=== PATIENT | female | born 1970 | race Caucasian/White ===

== ENCOUNTER 2016-11-08 23:01 | Emergency (ER) | payer MEDICAID ==
[~2016-11-08] VITALS: Ht 165.1 cm; Wt 97.5 kg
[~2016-11-08 23:01] MED LIST: ATEN-166 PO; DOXY-4 PO; FURO-149 PO; FURO40TA5 PO; GABA-531; IBUP-1479 PO; INSU100V9 SUBCUT; INSU200I SQ; LOSA100T15; OMEP40CA33 PO; SITA100T7 PO
[2016-11-08 23:26] VITALS: BP_SYST 109
[2016-11-09 00:31] LABS: BILIRUBIN,URINE NEGATIVE (NEGATIVE); COLOR,URINE YELLOW (YELLOW); GLUCOSE,URINE NEGATIVE (NEGATIVE); KETONES,URINE NEGATIVE (NEGATIVE); LEUKOCYTE ESTERASE ,URINE 1+ (NEGATIVE); NITRITE, URINE NEGATIVE (NEGATIVE); PROTEIN URINE TRACE (NEGATIVE); UROBILINOGEN,URINE 0.2 (0.2-1.0)
[2016-11-09 00:38] LABS: BLOOD, URINE TRACE (NEGATIVE)
[2016-11-09 00:39] LABS: CLARITY/URINE HAZY (CLEAR)
[2016-11-09 00:41] LABS: BACTERIA,URINE FEW /HPF (None Seen); RBC,URINE 0-3 /HPF (0-3); WBC,URINE 80-100 /HPF (0-3)
[2016-11-09 00:42] LABS: MUCUS,URINE None Seen /LPF (None Seen)
[2016-11-09] MEDS ORDERED: IBUPROFEN 800 MG TABLET PO ONE (01:00)
[2016-11-09 01:30] VITALS: BP_SYST 110
== END 2016-11-09 01:30 | disposition home or self-care (01) ==
LOC: SED 23:01
DX: N39.0 Urinary tract infection, site not specified (principal); E11.9 Type 2 diabetes mellitus without complications; K21.9 Gastro-esophageal reflux disease without esophagitis; I10 Essential (primary) hypertension; Z79.4 Long term (current) use of insulin; Z88.8 Allergy status to other drugs, medicaments and biological substances
CPT/HCPCS: 81000-TC; 87086; 99284

== ENCOUNTER 2016-12-06 23:28 | Emergency (ER) | payer MEDICAID ==
[~2016-12-06] VITALS: Ht 162.6 cm; Wt 104.3 kg
[2016-12-06 23:28] VITALS: BP_SYST 96
[2016-12-06] MEDS ORDERED: NACL 0.9% 1,000 ML IV ONE (23:45)
[2016-12-07 00:22] LABS: BILIRUBIN,URINE NEGATIVE (NEGATIVE); CLARITY/URINE HAZY (CLEAR); COLOR,URINE YELLOW (YELLOW); GLUCOSE,URINE 3+ (NEGATIVE); KETONES,URINE NEGATIVE (NEGATIVE); LEUKOCYTE ESTERASE ,URINE 1+ (NEGATIVE); NITRITE, URINE NEGATIVE (NEGATIVE); PROTEIN URINE 1+ (NEGATIVE); UROBILINOGEN,URINE 0.2 (0.2-1.0)
[2016-12-07 00:23] LABS: BASOPHILS % (AUTO) 0.4 % (0.0-2.0); EOSINOPHILS # (AUTO) 0.1 K/uL (0.0-0.4); EOSINOPHILS % (AUTO) 1.4 % (0.0-4.0); HEMATOCRIT 40.7 % (36-48); HEMOGLOBIN 13.5 g/dL (12.0-16.0); LYMPHOCYTES # (AUTO) 1.6 K/uL (1.0-5.5); LYMPHOCYTES % (AUTO) 15.8 % (20.5-51.5); MEAN CORPUSCULAR HEMOGLOBIN 29 pg (27-31); MEAN CORPUSCULAR HGB CONC 33 % (32-36); MEAN CORPUSCULAR VOLUME 88 fL (79.0-98.0); MONOCYTES # (AUTO) 0.6 K/uL (0.0-1.0); MONOCYTES % (AUTO) 5.6 % (1.7-9.3); NEUTROPHILS # (AUTO) 7.7 K/uL (1.8-7.7); NEUTROPHILS % (AUTO) 76.8 % (40.0-70.0); PLATELET COUNT (AUTO) 308 K/uL (130-430); RED BLOOD CELL COUNT(AUTO) 4.62 MIL/uL (4.2-6.2); RED CELL DISTRIBUTION WIDTH 13.9 % (9.0-15.0)
[2016-12-07 00:29] LABS: CALCIUM 9.6 mg/dL (8.4-11.0); CREATININE 1.84 mg/dL (0.55-1.30)
[2016-12-07] MEDS ORDERED: POTA8TAB4 PO (00:29)
[2016-12-07] MEDS ORDERED: LISI10TA5 PO (00:29)
[2016-12-07] MEDS ORDERED: BUME1TAB4 PO (00:29)
[2016-12-07] MEDS ORDERED: CAT.1 PO (00:29)
[2016-12-07] MEDS ORDERED: PIOG30TA70 PO (00:29)
[2016-12-07 00:32] LABS: INR 0.9 (0.8-1.2); PROTHROMBIN TIME 10.3 SECS (9.5-12.5)
[2016-12-07 00:34] LABS: ALBUMIN 3.4 g/dL (3.4-4.8)
[2016-12-07 00:36] LABS: BLOOD, URINE TRACE (NEGATIVE)
[2016-12-07] MEDS ORDERED: INSULIN NPH/REGULAR 70-30, 100 UNITS/ML, 10 ML VIAL SUBCUT ONE (00:45)
[2016-12-07] MEDS ORDERED: DILTIAZEM HCL 25 MG/5 ML VIAL IVP ONE ×2 (00:45)
[2016-12-07] MEDS ORDERED: KETOROLAC TROMETHAMINE 30 MG VIAL IVP ONE (00:45)
[2016-12-07] MEDS ORDERED: NACL 0.9% 1,000 ML IV ONE ×2 (00:45→01:00)
[2016-12-07 00:53] LABS: BACTERIA,URINE FEW /HPF (None Seen); MUCUS,URINE None Seen /LPF (None Seen); RBC,URINE 0-3 /HPF (0-3)
[2016-12-07] MEDS ORDERED: LEVOFLOXACIN 500 MG/D5W 100 ML IV ONE (01:00)
[2016-12-07] MEDS ORDERED: INSULIN REGULAR, HUMAN 10 UNITS/0.1 ML INJ SUBCUT ONE (01:15)
[2016-12-07 02:16] VITALS: BP_SYST 108
[2016-12-07] MEDS ORDERED: ATENOLOL 25 MG TABLET(TENORMIN) PO SCH (09:00)
== END 2016-12-07 02:16 | disposition left against medical advice (07) ==
LOC: SED 23:28
DX: E86.0 Dehydration (principal); N39.0 Urinary tract infection, site not specified; I11.0 Hypertensive heart disease with heart failure; I50.9 Heart failure, unspecified; E11.9 Type 2 diabetes mellitus without complications; K21.9 Gastro-esophageal reflux disease without esophagitis; Z79.4 Long term (current) use of insulin; Z91.041 Radiographic dye allergy status; Z79.899 Other long term (current) drug therapy
CPT/HCPCS: 36415; 71010; 80053; 81000; 82009; 82962; 83605; 83880; 84484; 85025; 85610; 85730; 87040; 87086; 93005; 96361; 96365; 96372; 96375; 96376; 99285; J1815 ×2; J1885; J1956; J3490; J7030

== ENCOUNTER 2017-04-17 19:11 | Emergency (ER) | payer MEDICAID ==
[~2017-04-17 19:11] MED LIST changes: +BUME1TAB4 PO; +CAT.1 PO; -DOXY-4 PO; +LISI10TA5 PO; +PIOG30TA70 PO; +POTA8TAB4 PO
[2017-04-17 19:15] VITALS: BP_SYST 94
--- NOTE | 2017-04-17 19:15 | NUR ---
Patient to ER bed 1 to gown for evaluation. Side rails up. Report given to Michael METZGER.
--- NOTE | 2017-04-17 19:17 | NUR ---
ROSIO Velasco at bedside examining patient.
--- NOTE | 2017-04-17 19:20 | NUR ---
Pt states that she was feeling weak for a couple days and has been feeling more weak. Pt states dizziness when standing up. Pt also reports nausea with neck pain. AAOx4. Will continue to monitor. No other injuries or complaints mentioned/noted. No distress noted.
--- NOTE | 2017-04-17 19:35 | NUR ---
# 22 gauge angiocath placed to R AC. Use of asceptic technique. Opsite placed over site. Blood return noted. Flushed with 10 cc of normal saline. No evidence of infiltration noted. Patient tolerated well.
[2017-04-17] MEDS ORDERED: NACL 0.9% 1,000 ML IV ONE (20:30)
[2017-04-17] MEDS ORDERED: NALOXONE HCL 2 MG/2 ML SYR ONE (20:36)
[2017-04-17 21:20] LABS: BASOPHILS # (AUTO) 0.3 K/uL (0.0-0.2); BASOPHILS % (AUTO) 1.9 % (0.0-2.0); EOSINOPHILS # (AUTO) 0.3 K/uL (0.0-0.4); EOSINOPHILS % (AUTO) 1.6 % (0.0-4.0); HEMATOCRIT 37.5 % (36-48); HEMOGLOBIN 12.6 g/dL (12.0-16.0); LYMPHOCYTES # (AUTO) 2.2 K/uL (1.0-5.5); LYMPHOCYTES % (AUTO) 13.6 % (20.5-51.5); MEAN CORPUSCULAR HEMOGLOBIN 29 pg (27-31); MEAN CORPUSCULAR HGB CONC 34 % (32-36); MEAN CORPUSCULAR VOLUME 87 fL (79.0-98.0); MONOCYTES # (AUTO) 1.2 K/uL (0.0-1.0); MONOCYTES % (AUTO) 7.3 % (1.7-9.3); NEUTROPHILS # (AUTO) 12.1 K/uL (1.8-7.7); NEUTROPHILS % (AUTO) 75.6 % (40.0-70.0); PLATELET COUNT (AUTO) 343 K/uL (130-430); RED BLOOD CELL COUNT(AUTO) 4.33 MIL/uL (4.2-6.2); RED CELL DISTRIBUTION WIDTH 12.1 % (9.0-15.0); WHITE BLOOD COUNT (AUTO) 16.1 K/uL (4.8-10.8)
[2017-04-17 21:27] LABS: ANION GAP 8 (5-15); CALCIUM 8.5 mg/dL (8.4-11.0); CHLORIDE 97 mmol/L (98-107); CREATININE 3.14 mg/dL (0.55-1.30); GFR AFRICAN AMERICAN 21 mL/min (>90); GLUCOSE 319 mg/dL (70-99); POTASSIUM 4.3 mmol/L (3.5-5.1); SODIUM SERUM 133 mmol/L (136-145); UREA NITROGEN, BLOOD 30 mg/dL (8-21)
[2017-04-17] MEDS ORDERED: CYCLOBENZAPRINE HCL 10 MG TABLET (FLEXERIL) PO ONE (21:30)
[2017-04-17] MEDS ORDERED: PROCHLORPERAZINE EDISYLATE 10 MG/2 ML VIAL IVP ONE (21:30)
[2017-04-17] MEDS ORDERED: PANTOPRAZOLE SODIUM 40 MG/VIAL (PROTONIX) IVP ONE (21:30)
[2017-04-17 21:33] LABS: CLARITY/URINE SL CLOUDY (CLEAR); COLOR,URINE YELLOW (YELLOW); GLUCOSE,URINE NEGATIVE (NEGATIVE); KETONES,URINE TRACE (NEGATIVE); LEUKOCYTE ESTERASE ,URINE 2+ (NEGATIVE); NITRITE, URINE NEGATIVE (NEGATIVE); PROTEIN URINE 2+ (NEGATIVE)
[2017-04-17 21:34] LABS: BILIRUBIN,URINE NEGATIVE (NEGATIVE); BLOOD, URINE TRACE (NEGATIVE)
[2017-04-17 21:35] LABS: BACTERIA,URINE MANY /HPF (None Seen); MUCUS,URINE None Seen /LPF (None Seen); WBC,URINE 20-50 /HPF (0-3)
[2017-04-17 21:36] LABS: ALANINE AMINOTRANSFERASE 14 U/L (12-78); ALBUMIN 3.2 g/dL (3.4-4.8); ASPARTATE AMINOTRANSFERASE 16 U/L (10-37); TOTAL BILIRUBIN 0.5 mg/dL (0.0-1.0)
[2017-04-17 21:36] LABS: BARBITURATE, URINE NEGATIVE (NEG <=200); BENZODIAZEPINE, URINE NEGATIVE (NEG <=150); CANNABINOID, URINE NEGATIVE (NEG <=50); COCAINE, URINE NEGATIVE (NEG <=150); METHAMPHETAMINES SCREEN,URINE NEGATIVE (NEG <=500); OPIATE, URINE NEGATIVE (NEG <=100); PHENCYCLIDINE SCREEN,URINE NEGATIVE (NEG <=25); UR TRICYCLIC ANTIDEPRESSANTS NEGATIVE (NEG <=300); URINE AMPHETAMINE POSITIVE (NEG <=500); URINE METHADONE NEGATIVE (NEG <=200); URINE OXYCODONE SCREEN NEGATIVE (NEG <=100); URINE PROPOXYPHENE SCREEN NEGATIVE (NEG <=300)
[2017-04-17 21:43] LABS: ACETAMINOPHEN < 1 ug/mL (1-30)
[2017-04-17] MEDS ORDERED: cefTRIAXone 1 GM in D5W 50 ML IV ONE (22:00)
[2017-04-17] MEDS: NACL 0.9% 1,000 ML IV ONE ×2 (22:03→22:51)
[2017-04-17] MEDS ORDERED: NALOXONE HCL 2 MG/2 ML SYR IVP ONE (22:15)
--- NOTE | 2017-04-17 22:30 | NUR ---
No adverse reactions noted. Will continue to monitor.
[2017-04-17] MEDS ORDERED: cefTRIAXone 1 GM IVPB PREMIX 50 ML IV ONE (22:54)
[2017-04-17] MEDS ORDERED: cefTRIAXone 1 GM VIAL ONE (22:55)
--- NOTE | 2017-04-17 23:23 | NUR ---
Patient does not wish to proceed with medical care recommended by Dr. Velasco. Patient given information related to possible complications, up to and including , which could occur as a result of leaving hospital at this time. Patient verbalizes understanding of risks involved leaving against medical advice. Patient has signed AMA form.
[2017-04-17 23:33] VITALS: BP_SYST 100
== END 2017-04-17 23:23 | disposition left against medical advice (07) ==
LOC: SED 22:23
DX: N10 Acute pyelonephritis (principal); I11.0 Hypertensive heart disease with heart failure; I50.9 Heart failure, unspecified; E11.29 Type 2 diabetes mellitus with other diabetic kidney complication; N17.9 Acute kidney failure, unspecified; K21.9 Gastro-esophageal reflux disease without esophagitis; Z90.49 Acquired absence of other specified parts of digestive tract
CPT/HCPCS: 36415; 71010; 80053; 80307; 81000; 82962; 84484; 85025; 87040; 93005; 96361; 96365; 96375; 99285; C9113; G0480; G0481; J0696 ×2; J0780; J2310; J7030

== ENCOUNTER 2019-12-28 21:03 | Emergency (ER) | payer MEDICAID ==
[~2019-12-28] VITALS: Ht 167.6 cm; Wt 147.4 kg
[~2019-12-28 21:03] MED LIST changes: -BUME1TAB4 PO; +BUME1TAB8 PO; -IBUP-1479 PO; +IBUP-1968 PO; -LOSA100T15; +LOSA100T23; +SITA100T11 PO; -SITA100T7 PO
[2019-12-28 21:55] VITALS: BP_SYST 140
[2019-12-28] MEDS ORDERED: ASPIRIN 81 MG TAB.CHEW PO ONE (22:15)
[2019-12-28 22:32] LABS: BILIRUBIN,URINE NEGATIVE (NEGATIVE); BLOOD, URINE NEGATIVE (NEGATIVE); CLARITY/URINE CLEAR (CLEAR); COLOR,URINE YELLOW (YELLOW); GLUCOSE,URINE 2+ (NEGATIVE); KETONES,URINE NEGATIVE (NEGATIVE); LEUKOCYTE ESTERASE ,URINE NEGATIVE (NEGATIVE); NITRITE, URINE NEGATIVE (NEGATIVE); PROTEIN URINE NEGATIVE (NEGATIVE); UROBILINOGEN,URINE 0.2 (0.2-1.0)
[2019-12-28 23:25] LABS: BASOPHILS # (AUTO) 0.1 K/uL (0.0-0.2); BASOPHILS % (AUTO) 1.1 % (0.0-2.0); EOSINOPHILS # (AUTO) 0.4 K/uL (0.0-0.4); EOSINOPHILS % (AUTO) 4.4 % (0.0-4.0); HEMATOCRIT 36.8 % (36-48); HEMOGLOBIN 12.1 g/dL (12.0-16.0); LYMPHOCYTES % (AUTO) 23.7 % (20.5-51.5); MEAN CORPUSCULAR HEMOGLOBIN 30 pg (27-31); MEAN CORPUSCULAR HGB CONC 33 % (32-36); MEAN CORPUSCULAR VOLUME 90 fL (79.0-98.0); MONOCYTES # (AUTO) 0.7 K/uL (0.0-1.0); MONOCYTES % (AUTO) 8.1 % (1.7-9.3); NEUTROPHILS # (AUTO) 5.3 K/uL (1.8-7.7); NEUTROPHILS % (AUTO) 62.7 % (40.0-70.0); PLATELET COUNT (AUTO) 258 K/uL (130-430); RED CELL DISTRIBUTION WIDTH 15.1 % (9.0-15.0); WHITE BLOOD COUNT (AUTO) 8.4 K/uL (4.8-10.8)
[2019-12-28 23:37] LABS: CALCIUM 8.3 mg/dL (8.4-11.0); CREATININE 1.67 mg/dL (0.55-1.30); POTASSIUM 4.1 mmol/L (3.5-5.1)
[2019-12-28 23:41] LABS: PROTHROMBIN TIME 9.8 SECS (9.5-12.5)
[2019-12-28 23:43] LABS: ALBUMIN 2.9 g/dL (3.4-4.8); TOTAL BILIRUBIN 0.5 mg/dL (0.0-1.0)
[2019-12-29] MEDS ORDERED: HYDROcodone/ACETAMIN 10-325 MG TAB PO ONE (00:30)
[2019-12-29 01:00] VITALS: BP_SYST 132
== END 2019-12-29 01:00 | disposition home or self-care (01) ==
LOC: SED 21:03
DX: R60.9 Edema, unspecified (principal); I13.0 Hypertensive heart and chronic kidney disease with heart failure and stage 1 through stage 4 chronic kidney disease, or unspecified chronic kidney disease; E11.22 Type 2 diabetes mellitus with diabetic chronic kidney disease; N18.9 Chronic kidney disease, unspecified; I50.9 Heart failure, unspecified; K21.9 Gastro-esophageal reflux disease without esophagitis; Z79.899 Other long term (current) drug therapy; Z88.8 Allergy status to other drugs, medicaments and biological substances
CPT/HCPCS: 36415; 71045; 80053; 81003; 81025; 82550-TC; 83880; 84484; 85025; 85610-TC; 85730-TC; 93005; 93970; 99285

== ENCOUNTER 2020-04-14 17:36 | Emergency (ER) | payer MEDICAID ==
[~2020-04-14] VITALS: Ht 167.6 cm; Wt 136.1 kg
--- NOTE | 2020-04-14 17:40 | NUR ---
Patient is in restroom.
[2020-04-14 17:45] VITALS: BP_SYST 117
--- NOTE | 2020-04-14 17:50 | NUR ---
Patient to ER hallway bed for evaluation. Side rails up. Report given to DOMENICA Callejas.
--- NOTE | 2020-04-14 17:59 | NUR ---
DR VALDES IN TO ASSESS
--- NOTE | 2020-04-14 17:59 | NUR ---
RECEIVED, STEPHANIA TO ASSUME CARE, CALM, ALERT, RESP UNLABORED, NO DISTRESS
[2020-04-14] MEDS ORDERED: ONDANSETRON 4 MG ODT TAB PO ONE (18:30)
--- NOTE | 2020-04-14 18:53 | NUR ---
EKG,LABS, COMPLETED, PT CALM, ALERT, RESP UNLABORED
--- NOTE | 2020-04-14 19:04 | NUR ---
NSR ON MONITOR NO ECTOPY, RESP UNLABORED, CLEAR MENTATION AND SPEECH
[2020-04-14 19:07] LABS: BILIRUBIN,URINE NEGATIVE (NEGATIVE); BLOOD, URINE NEGATIVE (NEGATIVE); CLARITY/URINE CLEAR (CLEAR); COLOR,URINE YELLOW (YELLOW); GLUCOSE,URINE 3+ (NEGATIVE); KETONES,URINE NEGATIVE (NEGATIVE); LEUKOCYTE ESTERASE ,URINE NEGATIVE (NEGATIVE); NITRITE, URINE NEGATIVE (NEGATIVE); PROTEIN URINE NEGATIVE (NEGATIVE); UROBILINOGEN,URINE 0.2 (0.2-1.0)
[2020-04-14 19:11] LABS: BASOPHILS # (AUTO) 0.1 K/uL (0.0-0.2); BASOPHILS % (AUTO) 0.7 % (0.0-2.0); EOSINOPHILS # (AUTO) 0.1 K/uL (0.0-0.4); EOSINOPHILS % (AUTO) 0.4 % (0.0-4.0); HEMOGLOBIN 13.4 g/dL (12.0-16.0); LYMPHOCYTES # (AUTO) 1.8 K/uL (1.0-5.5); LYMPHOCYTES % (AUTO) 13.5 % (20.5-51.5); MEAN CORPUSCULAR HEMOGLOBIN 29 pg (27-31); MEAN CORPUSCULAR HGB CONC 33 % (32-36); MEAN CORPUSCULAR VOLUME 89 fL (79.0-98.0); MONOCYTES # (AUTO) 0.8 K/uL (0.0-1.0); MONOCYTES % (AUTO) 5.7 % (1.7-9.3); NEUTROPHILS # (AUTO) 10.7 K/uL (1.8-7.7); NEUTROPHILS % (AUTO) 79.7 % (40.0-70.0); PLATELET COUNT (AUTO) 285 K/uL (130-430); RED BLOOD CELL COUNT(AUTO) 4.62 MIL/uL (4.2-6.2); RED CELL DISTRIBUTION WIDTH 13.9 % (9.0-15.0); WHITE BLOOD COUNT (AUTO) 13.4 K/uL (4.8-10.8)
[2020-04-14 19:19] LABS: BACTERIA,URINE FEW /HPF (None Seen); MUCUS,URINE None Seen /LPF (None Seen); RBC,URINE NONE SEEN /HPF (0-3); WBC,URINE 0-3 /HPF (0-3); YEAST,URINE Few /HPF (None Seen)
[2020-04-14 19:27] LABS: ALBUMIN 2.9 g/dL (3.4-4.8); CREATININE 1.63 mg/dL (0.55-1.30); POTASSIUM 3.8 mmol/L (3.5-5.1); TOTAL BILIRUBIN 0.7 mg/dL (0.0-1.0)
[2020-04-14 19:35] LABS: CALCIUM 9.1 mg/dL (8.4-11.0)
[2020-04-14] MEDS ORDERED: NACL 0.9% 1,000 ML IV ONE (20:45)
--- NOTE | 2020-04-14 20:57 | NUR ---
MEDICATED ORDERED. PT CALM, AND ALERT, NO DISTRESS
--- NOTE | 2020-04-14 20:57 | NUR ---
DR VALDES AT BEDSIDE TO ASSESS
[2020-04-14] MEDS ORDERED: FLUCONAZOLE 200 MG TABLET (DIFLUCAN) PO ONE (21:00)
[2020-04-14 21:15] VITALS: BP_SYST 126
--- NOTE | 2020-04-14 21:17 | NUR ---
Patient given written and verbal discharge instructions and verbalizes understanding. ER MD discussed with patient the results and treatment provided. Patient in stable condition. ID arm band removed. IV catheter removed intact and dressing applied, no active bleeding. Rx of ZOFRAN given. Patient educated on pain management and to follow up with PMD. Pain Scale 1/10 Opportunity for questions provided and answered. Medication side effect fact sheet provided.
== END 2020-04-14 21:15 | disposition home or self-care (01) ==
LOC: SED 17:36
DX: E11.65 Type 2 diabetes mellitus with hyperglycemia (principal); B37.9 Candidiasis, unspecified; H10.10 Acute atopic conjunctivitis, unspecified eye; E87.1 Hypo-osmolality and hyponatremia; I13.0 Hypertensive heart and chronic kidney disease with heart failure and stage 1 through stage 4 chronic kidney disease, or unspecified chronic kidney disease; E11.22 Type 2 diabetes mellitus with diabetic chronic kidney disease; N18.9 Chronic kidney disease, unspecified; I50.9 Heart failure, unspecified; N17.9 Acute kidney failure, unspecified; K21.9 Gastro-esophageal reflux disease without esophagitis; Z90.710 Acquired absence of both cervix and uterus; Z79.899 Other long term (current) drug therapy; Z79.4 Long term (current) use of insulin; Z88.8 Allergy status to other drugs, medicaments and biological substances
CPT/HCPCS: 36415; 81000; 80053; 83690; 84484; 85025; 93005; 96360; 99284; J7030; Q0162

== ENCOUNTER 2020-05-12 20:38 | Emergency (ER) | payer MEDICAID ==
[~2020-05-12] VITALS: Ht 162.6 cm; Wt 122.5 kg
[~2020-05-12 20:38] MED LIST changes: +OMEP40CA13 PO; -OMEP40CA33 PO
[2020-05-12 21:03] VITALS: BP_SYST 122
[2020-05-12] MEDS ORDERED: NACL 0.9% 1,000 ML IV ONE (21:42)
[2020-05-12] MEDS ORDERED: KETOROLAC TROMETHAMINE 30 MG VIAL IVP ONE (21:45)
[2020-05-12] MEDS ORDERED: ONDANSETRON HCL 4 MG/2 ML VIAL IVP ONE (21:45)
[2020-05-12 21:51] LABS: BASOPHILS # (AUTO) 0.1 K/uL (0.0-0.2); BASOPHILS % (AUTO) 0.5 % (0.0-2.0); EOSINOPHILS # (AUTO) 0.1 K/uL (0.0-0.4); HEMATOCRIT 42.8 % (36-48); HEMOGLOBIN 14.3 g/dL (12.0-16.0); LYMPHOCYTES # (AUTO) 2.1 K/uL (1.0-5.5); LYMPHOCYTES % (AUTO) 15.3 % (20.5-51.5); MEAN CORPUSCULAR HEMOGLOBIN 30 pg (27-31); MEAN CORPUSCULAR HGB CONC 33 % (32-36); MEAN CORPUSCULAR VOLUME 89 fL (79.0-98.0); MONOCYTES # (AUTO) 0.8 K/uL (0.0-1.0); MONOCYTES % (AUTO) 5.5 % (1.7-9.3); NEUTROPHILS # (AUTO) 10.8 K/uL (1.8-7.7); NEUTROPHILS % (AUTO) 77.7 % (40.0-70.0); PLATELET COUNT (AUTO) 277 K/uL (130-430); RED BLOOD CELL COUNT(AUTO) 4.82 MIL/uL (4.2-6.2); RED CELL DISTRIBUTION WIDTH 14.5 % (9.0-15.0)
[2020-05-12 21:53] LABS: CALCIUM 9.3 mg/dL (8.4-11.0); CREATININE 1.59 mg/dL (0.55-1.30); POTASSIUM 3.7 mmol/L (3.5-5.1)
[2020-05-12 21:59] LABS: ALBUMIN 3.1 g/dL (3.4-4.8); TOTAL BILIRUBIN 0.9 mg/dL (0.0-1.0)
[2020-05-12] MEDS ORDERED: PANTOPRAZOLE SODIUM 40 MG/VIAL (PROTONIX) IVP ONE (22:00)
[2020-05-12] MEDS ORDERED: MAG-AL HYDROX/SIMETH 30 ML UDC PO ONE (22:15)
[2020-05-12] MEDS ORDERED: DICYCLOMINE HCL 10 MG/5 ML SOLUTION PO ONE (22:15)
[2020-05-12] MEDS ORDERED: LIDOCAINE VISCOUS 2%, 15 ML UDC MM ONE (22:15)
[2020-05-12 23:21] VITALS: BP_SYST 126
== END 2020-05-12 23:21 | disposition home or self-care (01) ==
LOC: SED 20:38
DX: K29.70 Gastritis, unspecified, without bleeding (principal); I11.0 Hypertensive heart disease with heart failure; I50.9 Heart failure, unspecified; K21.9 Gastro-esophageal reflux disease without esophagitis; E11.9 Type 2 diabetes mellitus without complications; Z90.49 Acquired absence of other specified parts of digestive tract; Z90.710 Acquired absence of both cervix and uterus; Z79.899 Other long term (current) drug therapy; Z79.4 Long term (current) use of insulin; Z88.8 Allergy status to other drugs, medicaments and biological substances
CPT/HCPCS: 36415; 76700; 80053; 83690; 85025; 96361; 96374; 96375; 99284; C9113; J1885; J2001; J2405; J7030

== ENCOUNTER 2023-02-09 19:33 | Emergency (ER) | payer MEDICAID ==
[~2023-02-09] VITALS: Ht 167.6 cm; Wt 88.5 kg
[~2023-02-09 19:33] MED LIST changes: +ALOG25TA2 PO; +AMOX-426 PO; -ATEN-166 PO; +ATEN-41 PO; -BUME1TAB8 PO; -CAT.1 PO; +CEPH-548 PO; +ERTU15TA PO; -FURO-149 PO; -IBUP-1968 PO; +INSU100I26 SQ; -INSU100V9 SUBCUT; -INSU200I SQ; -LISI10TA5 PO; -LOSA100T23; +LOSA50TA3 PO; +METO2.5T6 PO; -OMEP40CA13 PO; +OMEP40CA20 PO; -PIOG30TA70 PO; -POTA8TAB4 PO; +POTA8TAB66 PO; -SITA100T11 PO; +tessalon PO
[2023-02-09 19:58] VITALS: BP_SYST 146
--- NOTE | 2023-02-09 19:58 | NUR ---
Triaged and placed patient back to the waiting room. No acute respiratory distress at this time. VSS. Informed patient to notify ED staff for any changes in condition or worsening of symptoms while waiting to be seen by a provider. Patient verbalized understanding.
--- NOTE | 2023-02-09 21:28 | NUR ---
Patient placed in ER BED 3 for evaluation. Bed in lowest position with siderails up. Report given to NORY METZGER for continuity of care. Instructed to notify ED staff for any changes in condition or worsening of symptoms. Patient verbalized understanding.
--- NOTE | 2023-02-09 22:16 | NUR ---
PT BIB FROM HOME C/O NAUSEA AND VOMITING X3DAYS, NASAL DISCHARGE, AND 9/10 ABD PAIN. PT STATES HAS CHILLS AND PERSPIRATION. PT STATES URINE HAS A STRANGE SMELL. PT HX OF GASTRITIS, DM, AND HERNIATED DISC X2. PT RESTING IN BED WITH RAILS UP BEDSIDE VSS
--- NOTE | 2023-02-09 22:35 | NUR ---
ER at bedside examining patient.
[2023-02-09] MEDS ORDERED: ONDANSETRON HCL 4 MG/2 ML VIAL IVP ONE (22:45)
[2023-02-09] MEDS ORDERED: NACL 0.9% 1,000 ML IV ONE (22:45)
[2023-02-09] MEDS ORDERED: KETOROLAC TROMETHAMINE 30 MG VIAL IVP ONE (22:45)
[2023-02-09 23:22] LABS: BILIRUBIN,URINE NEGATIVE (NEGATIVE); BLOOD, URINE NEGATIVE (NEGATIVE); CLARITY/URINE SL CLOUDY (CLEAR); COLOR,URINE YELLOW (YELLOW); GLUCOSE,URINE 3+ (NEGATIVE); KETONES,URINE TRACE (NEGATIVE); LEUKOCYTE ESTERASE ,URINE NEGATIVE (NEGATIVE); NITRITE, URINE NEGATIVE (NEGATIVE); PROTEIN URINE 1+ (NEGATIVE); UROBILINOGEN,URINE 0.2 (0.2-1.0)
[2023-02-09 23:34] LABS: BASOPHILS # (AUTO) 0.1 K/uL (0.0-0.2); BASOPHILS % (AUTO) 0.7 % (0.0-2.0); EOSINOPHILS % (AUTO) 0.1 % (0.0-4.0); HEMATOCRIT 43.2 % (36-48); HEMOGLOBIN 14.5 g/dL (12.0-16.0); LYMPHOCYTES # (AUTO) 1.8 K/uL (1.0-5.5); LYMPHOCYTES % (AUTO) 16.3 % (20.5-51.5); MEAN CORPUSCULAR HEMOGLOBIN 30 pg (27-31); MEAN CORPUSCULAR HGB CONC 34 % (32-36); MEAN CORPUSCULAR VOLUME 90 fL (79.0-98.0); MONOCYTES # (AUTO) 0.7 K/uL (0.0-1.0); MONOCYTES % (AUTO) 6.1 % (1.7-9.3); NEUTROPHILS # (AUTO) 8.6 K/uL (1.8-7.7); NEUTROPHILS % (AUTO) 76.8 % (40.0-70.0); PLATELET COUNT (AUTO) 222 K/uL (130-430); RED BLOOD CELL COUNT(AUTO) 4.81 MIL/uL (4.2-6.2); RED CELL DISTRIBUTION WIDTH 13.4 % (9.0-15.0); WHITE BLOOD COUNT (AUTO) 11.2 K/uL (4.8-10.8)
[2023-02-09 23:43] LABS: RBC,URINE 0-3 /HPF (0-3); WBC,URINE 0-3 /HPF (0-3)
[2023-02-09 23:44] LABS: BACTERIA,URINE RARE /HPF (None Seen); YEAST,URINE Few /HPF (None Seen)
[2023-02-09 23:55] LABS: ALBUMIN 3.5 g/dL (3.4-4.8); CALCIUM 9.3 mg/dL (8.4-11.0); CREATININE 1.81 mg/dL (0.55-1.30); TOTAL BILIRUBIN 1.3 mg/dL (0.0-1.0)
[2023-02-10] MEDS ORDERED: MORPHINE 4 MG INJ. 4 MG/ML VIAL IVP ONE (00:15)
[2023-02-10] MEDS ORDERED: ONDANSETRON HCL 4 MG/2 ML VIAL IVP ONE (00:30)
[2023-02-10] MEDS ORDERED: PRED20TA PO (01:28)
[2023-02-10] MEDS ORDERED: ONDA8TAB60 PO (01:28)
--- NOTE | 2023-02-10 02:07 | NUR ---
Patient given written and verbal discharge instructions and verbalizes understanding. ER DR GIORDANO discussed with patient the results and treatment provided. Patient in stable condition. ID arm band removed. IV catheter removed intact and dressing applied, no active bleeding. Rx of ZOFRAN AND PREDNISONE given. Patient educated on pain management and to follow up with PMD. Pain Scale 0/10. Opportunity for questions provided and answered. Medication side effect fact sheet provided.
[2023-02-10 02:11] VITALS: BP_SYST 143
== END 2023-02-10 02:11 | disposition home or self-care (01) ==
LOC: SED 19:33
DX: R11.2 Nausea with vomiting, unspecified (principal); R10.13 Epigastric pain; F41.9 Anxiety disorder, unspecified; R06.02 Shortness of breath; I11.0 Hypertensive heart disease with heart failure; I50.9 Heart failure, unspecified; E11.9 Type 2 diabetes mellitus without complications; F12.90 Cannabis use, unspecified, uncomplicated; K21.9 Gastro-esophageal reflux disease without esophagitis; Z88.8 Allergy status to other drugs, medicaments and biological substances; Z79.899 Other long term (current) drug therapy; Z20.822 Contact with and (suspected) exposure to COVID-19
CPT/HCPCS: 99284; 96374; 96361; 96375 ×2; 87426; 80053; 81000; 83690; 85025; 36415; 87804 ×2; 96376; J1885; J2405 ×2; J7030; J2270

== ENCOUNTER 2023-04-27 17:06 | Emergency (ER) | payer MEDICAID ==
[~2023-04-27] VITALS: Ht 167.6 cm; Wt 91.2 kg
[2023-04-27 17:06] VITALS: BP_SYST 163; PULSE 82; RESP 24; TEMP 99; O2SAT 98
[~2023-04-27 17:06] MED LIST changes: +ONDA8TAB60 PO; +PRED20TA PO
[2023-04-27] MEDS ORDERED: HALOPERIDOL LACTATE 5 MG/ML VIAL IM ONE (17:30)
[2023-04-27 17:57] LABS: BASOPHILS # (AUTO) 0.1 K/uL (0.0-0.2); BASOPHILS % (AUTO) 1.1 % (0.0-2.0); EOSINOPHILS # (AUTO) 0.2 K/uL (0.0-0.4); EOSINOPHILS % (AUTO) 1.7 % (0.0-4.0); HEMATOCRIT 43.6 % (36-48); HEMOGLOBIN 14.5 g/dL (12.0-16.0); LYMPHOCYTES # (AUTO) 1.8 K/uL (1.0-5.5); MEAN CORPUSCULAR HEMOGLOBIN 30 pg (27-31); MEAN CORPUSCULAR HGB CONC 33 % (32-36); MEAN CORPUSCULAR VOLUME 91 fL (79.0-98.0); MONOCYTES # (AUTO) 0.5 K/uL (0.0-1.0); MONOCYTES % (AUTO) 4.9 % (1.7-9.3); NEUTROPHILS # (AUTO) 8.1 K/uL (1.8-7.7); NEUTROPHILS % (AUTO) 75.3 % (40.0-70.0); PLATELET COUNT (AUTO) 259 K/uL (130-430); RED BLOOD CELL COUNT(AUTO) 4.77 MIL/uL (4.2-6.2); RED CELL DISTRIBUTION WIDTH 12.7 % (9.0-15.0); WHITE BLOOD COUNT (AUTO) 10.8 K/uL (4.8-10.8)
[2023-04-27 18:24] LABS: SERUM HCG (QUALITATIVE) NEGATIVE (NEGATIVE)
[2023-04-27 18:30] LABS: CLARITY/URINE SLIGHTLY HAZY (CLEAR)
[2023-04-27 18:30] LABS: ALANINE AMINOTRANSFERASE 6 U/L (12-78); ALBUMIN 3.5 g/dL (3.4-4.8); ANION GAP 11 (5-15); ASPARTATE AMINOTRANSFERASE 18 U/L (10-37); CALCIUM 9.2 mg/dL (8.4-11.0); CARBON DIOXIDE 26 mmol/L (23-29); CHLORIDE 102 mmol/L (98-107); CREATININE 1.29 mg/dL (0.55-1.30); GFR AFRICAN AMERICAN 56 mL/min (>90); GLUCOSE 155 mg/dL (74-106); POTASSIUM 3.7 mmol/L (3.5-5.1); SODIUM SERUM 139 mmol/L (136-145); TOTAL BILIRUBIN 0.8 mg/dL (0.0-1.0); TOTAL PROTEIN, SERUM 7.6 g/dL (6.4-8.3); UREA NITROGEN, BLOOD 18 mg/dL (8-21)
[2023-04-27 18:31] LABS: BILIRUBIN,URINE NEGATIVE (NEGATIVE); BLOOD, URINE TRACE (NEGATIVE); COLOR,URINE YELLOW (YELLOW); GLUCOSE,URINE 2+ (NEGATIVE); KETONES,URINE TRACE (NEGATIVE); LEUKOCYTE ESTERASE ,URINE NEGATIVE (NEGATIVE); NITRITE, URINE NEGATIVE (NEGATIVE); PROTEIN URINE 2+ (NEGATIVE); UROBILINOGEN,URINE 0.2 (0.2-1.0)
[2023-04-27 18:31] LABS: GFR NON AFRICAN-AMERICAN 46 mL/min (>90)
[2023-04-27 18:33] LABS: BACTERIA,URINE FEW /HPF (None Seen); MUCUS,URINE None Seen /LPF (None Seen); RBC,URINE 0-3 /HPF (0-3); WBC,URINE 0-3 /HPF (0-3); YEAST,URINE Few /HPF (None Seen)
[2023-04-27 18:40] LABS: AMYLASE 86 U/L (0-100); LACTATE DEHYDROGENASE 187 U/L (81-234); LIPASE 116 U/L (73-393)
[2023-04-27 18:54] LABS: ACETONE, SERUM NEGATIVE (NEGATIVE)
[2023-04-27] MEDS ORDERED: OMEP20CA15 PO (19:44)
[2023-04-27] MEDS ORDERED: METO-290 PO (19:44)
[2023-04-27 19:47] VITALS: BP_SYST 142; PULSE 76; RESP 18; TEMP 98.5; O2SAT 95
[2023-04-27 22:30] LABS: BARBITURATE, URINE NEGATIVE (NEG <=200); BENZODIAZEPINE, URINE NEGATIVE (NEG <=150); CANNABINOID, URINE POSITIVE (NEG <=50); COCAINE, URINE NEGATIVE (NEG <=150); METHAMPHETAMINES SCREEN,URINE NEGATIVE (NEG <=500); OPIATE, URINE NEGATIVE (NEG <=100); PHENCYCLIDINE SCREEN,URINE NEGATIVE (NEG <=25); UR TRICYCLIC ANTIDEPRESSANTS NEGATIVE (NEG <=300); URINE AMPHETAMINE NEGATIVE (NEG <=500); URINE METHADONE NEGATIVE (NEG <=200); URINE OXYCODONE SCREEN NEGATIVE (NEG <=100); URINE PROPOXYPHENE SCREEN NEGATIVE (NEG <=300)
== END 2023-04-27 19:47 | disposition home or self-care (01) ==
LOC: SED 17:06
DX: K31.84 Gastroparesis (principal); R10.13 Epigastric pain; R11.2 Nausea with vomiting, unspecified; I11.0 Hypertensive heart disease with heart failure; I50.9 Heart failure, unspecified; E11.9 Type 2 diabetes mellitus without complications; K21.9 Gastro-esophageal reflux disease without esophagitis; F12.90 Cannabis use, unspecified, uncomplicated; Z91.048 Other nonmedicinal substance allergy status; Z79.899 Other long term (current) drug therapy
CPT/HCPCS: 99285; 74176; 80307; 80053; 82009; 82150; 84703; 83615; 83690; 85025; 85610; 85730; 84484; 36415; 76376; 96372; 83605; 82397; 81000; J1630

== ENCOUNTER 2023-08-05 04:04 | Emergency (ER) | payer MEDICAID ==
[~2023-08-05] VITALS: Ht 167.6 cm; Wt 90.7 kg
[~2023-08-05 04:04] MED LIST changes: +LOSA-413 PO; -LOSA50TA3 PO; +METO-290 PO; +OMEP20CA15 PO
[2023-08-05 05:01] VITALS: BP_SYST 146; PULSE 70; RESP 16; TEMP 97.8; O2SAT 96
[2023-08-05] MEDS ORDERED: NAPR-690 PO (05:34)
[2023-08-05] MEDS ORDERED: PSEU120T57 PO (05:34)
[2023-08-05] MEDS: ONDANSETRON 4 MG ODT TAB PO ONE (05:47)
[2023-08-05] MEDS: KETOROLAC TROMETHAMINE 30 MG VIAL IM ONE (05:50)
[2023-08-05 05:52] VITALS: BP_SYST 146; PULSE 70; RESP 16; TEMP 97.8; O2SAT 96
== END 2023-08-05 05:50 | disposition home or self-care (01) ==
LOC: SED 04:04
DX: R51.9 Headache, unspecified (principal); J06.9 Acute upper respiratory infection, unspecified; R05.9 Cough, unspecified; I11.0 Hypertensive heart disease with heart failure; I50.9 Heart failure, unspecified; K21.9 Gastro-esophageal reflux disease without esophagitis; E11.9 Type 2 diabetes mellitus without complications; Z88.8 Allergy status to other drugs, medicaments and biological substances; Z79.899 Other long term (current) drug therapy
CPT/HCPCS: 99283; 96372; Q0162; J1885

== ENCOUNTER 2023-09-14 23:56 | Emergency (ER) | payer MEDICAID, OTHER ==
[~2023-09-14] VITALS: Ht 167.6 cm; Wt 92.1 kg
[~2023-09-14 23:56] MED LIST changes: +NAPR-690 PO; +PSEU120T57 PO
[2023-09-15 00:15] VITALS: BP_SYST 109; PULSE 84; RESP 19; TEMP 97.9; O2SAT 99
[2023-09-15] MEDS ORDERED: MORPHINE 4 MG INJ. 4 MG/ML VIAL IM ONE ×2 (01:15→03:15)
[2023-09-15 01:57] LABS: BASOPHILS # (AUTO) 0.1 K/uL (0.0-0.2); EOSINOPHILS # (AUTO) 0.6 K/uL (0.0-0.4); EOSINOPHILS % (AUTO) 4.6 % (0.0-4.0); HEMATOCRIT 36.8 % (36-48); HEMOGLOBIN 12.5 g/dL (12.0-16.0); LYMPHOCYTES # (AUTO) 3.5 K/uL (1.0-5.5); LYMPHOCYTES % (AUTO) 28.7 % (20.5-51.5); MEAN CORPUSCULAR HEMOGLOBIN 31 pg (27-31); MEAN CORPUSCULAR HGB CONC 34 % (32-36); MEAN CORPUSCULAR VOLUME 91 fL (79.0-98.0); MONOCYTES # (AUTO) 0.8 K/uL (0.0-1.0); NEUTROPHILS # (AUTO) 7.1 K/uL (1.8-7.7); NEUTROPHILS % (AUTO) 58.7 % (40.0-70.0); PLATELET COUNT (AUTO) 236 K/uL (130-430); RED BLOOD CELL COUNT(AUTO) 4.04 MIL/uL (4.2-6.2); RED CELL DISTRIBUTION WIDTH 14.4 % (9.0-15.0); WHITE BLOOD COUNT (AUTO) 12.1 K/uL (4.8-10.8)
[2023-09-15 02:08] LABS: CALCIUM 8.3 mg/dL (8.4-11.0); CREATININE 1.55 mg/dL (0.55-1.30); POTASSIUM 4.4 mmol/L (3.5-5.1)
[2023-09-15] MEDS ORDERED: ALBUTEROL SULFATE 0.083% 2.5 MG/3 ML VIAL.NEB INH ONE (02:15)
[2023-09-15] MEDS ORDERED: TRAM50TA2 PO (03:27)
[2023-09-15 03:39] VITALS: BP_SYST 115; PULSE 81; RESP 19; TEMP 97.9; O2SAT 99
== END 2023-09-15 03:37 | disposition home or self-care (01) ==
LOC: SED 23:56
DX: G62.9 Polyneuropathy, unspecified (principal); M79.672 Pain in left foot; I11.0 Hypertensive heart disease with heart failure; I50.9 Heart failure, unspecified; E11.9 Type 2 diabetes mellitus without complications; K21.9 Gastro-esophageal reflux disease without esophagitis; Z91.048 Other nonmedicinal substance allergy status; Z79.899 Other long term (current) drug therapy
CPT/HCPCS: 99285; 80048; 85025; 85379; 36415; 93971; 73620; 94640; 96372; J2270

== ENCOUNTER 2023-09-18 14:11 | Emergency (ER) | payer OTHER ==
[~2023-09-18] VITALS: Ht 167.6 cm; Wt 92.1 kg
[~2023-09-18 14:11] MED LIST changes: +TRAM50TA2 PO
[2023-09-18 14:28] VITALS: BP_SYST 145; PULSE 84; RESP 18; TEMP 98; O2SAT 98
[2023-09-18] MEDS ORDERED: TRAM50TA2 PO (14:38)
[2023-09-18] MEDS ORDERED: MORPHINE 4 MG INJ. 4 MG/ML VIAL IM ONE (14:45)
[2023-09-18] MEDS ORDERED: ONDANSETRON 4 MG ODT TAB PO ONE (14:45)
== END 2023-09-18 15:00 | disposition home or self-care (01) ==
LOC: SED 14:11
DX: S92.515A Nondisplaced fracture of proximal phalanx of left lesser toe(s), initial encounter for closed fracture (principal); E11.9 Type 2 diabetes mellitus without complications; K21.9 Gastro-esophageal reflux disease without esophagitis; I11.0 Hypertensive heart disease with heart failure; I50.9 Heart failure, unspecified; Z79.899 Other long term (current) drug therapy; X58.XXXA Exposure to other specified factors, initial encounter; Y93.89 Activity, other specified; Y92.89 Other specified places as the place of occurrence of the external cause; Y99.8 Other external cause status
CPT/HCPCS: 99283; 96372; Q0162; J2270